=== PATIENT | male | born 1965 | race Caucasian/White ===

== ENCOUNTER → 2020-10-20 10:48 | Outpatient (BNVA) | payer OTHER, SELFPAY | PROVIDERS: PCP Internal Medicine; Visit Provider Urology ==

== ENCOUNTER 2023-02-04 16:17 | Outpatient (REF) | payer OTHER, SELFPAY ==
[2023-02-05 02:16] LABS: PSA,Total (Free>4and<10) 0.85 ng/mL (0.00-4.00)
== END 2023-02-04 16:18 | disposition home or self-care (01) ==
LOC: HO.LAB 16:17
PROVIDERS: Visit Provider Urology
DX: Z12.5 Encounter for screening for malignant neoplasm of prostate (principal); N48.6 Induration penis plastica
CPT/HCPCS: 36415; 84153

== ENCOUNTER 2023-02-13 11:34 | Outpatient (AMB) | payer OTHER, SELFPAY ==
--- NOTE | 2023-02-13 11:35 | MHC.OFFVIS ---
Intake Intake Visit Reasons: 1Y PSA(set) Intake Note: Patient is present for Telephone PSA Urology Med: Sildenafil Antibiotic Allergy: None Blood Thinner: None Pharmacy: [facility] Allergies cats Allergy (Unknown, Uncoded 02/13/23 11:35) Unknown Medication List - Last Reconciled 02/13/23 by Paul Mathis MD allopurinol 300 mg PO DAILY hydrochlorothiazide 25 mg PO DAILY prednisone 1 mg PO DAILY sildenafil 50 mg PO DAILY PRN 30 days HPI HPI Comments History of Present Illness Details Anibal Pérez is a very pleasant male. He is a patient of Dr Hernandez. They are seen in the office today for the following urologic conditions. - Peyronie's disease - erectile dysfunction Telephone evaluation 15 minutes consultation [employer] juliann Video attempted Peyronie's stable Sildenafil refilled PSA low Follow-up 12 month Erectile dysfunction: Continue with Viagra as needed He presents today for for continued evaluation and management of erectile dysfunction. Symptoms have been present for/since years ago. Anibal describes having a penile fracture. Since this point in time he's had marked issues with erections. He does use Viagra. - trying over the counter product- low dose viagra. Current treatment includes Viagra/sildenafil. - PSA 09/12 1.5, 02/13 0.9 Prior therapies include oral medications. Nocturnal erections do not occur. Currently they are in a stable relationship. Associated problems hypertension Yes Medications include(s) Cialis . Overall he is satisfied with the current management. Therapeutic plan includes maintaining current therapy - oral low dose medications. Current symptoms include trouble sustaining an erection, trouble getting an erection PFSH Medical History Epididymitis Erectile dysfunction Gout Peyronie's disease Surgical History History of surgery Family History Father Lung cancer Smoker Mother Cardiac disease Review of Systems Const All systems reviewed & are unremarkable except as noted in HPI and below Reports no additional complaints Resp Reports no additional complaints GI Reports no additional complaints Reports as per HPI Musc Reports no additional complaints Physical Exam Telemedicine evaluation Appropriate responses Regular breathing rate and rhythm HEENT Head: Yes normal to inspection Ears: hearing grossly normal bilaterally Eyes General: appearance normal, both eyes and all related structures Neck Neck: Yes normal visual inspection Chest Chest palpation & inspection: normal inspection of the chest Resp Effort & Inspection: normal respiratory effort and able to speak in complete sentences Assessment & Plan Assessment & Plan (1) Peyronie's disease: Code(s): N48.6 - Induration penis plastica (2) Erectile dysfunction: Code(s): N52.9 - Male erectile dysfunction, unspecified Plan 12 month follow-up Patient Instructions: Imaging studies, laboratory and physical exam results were discussed and reviewed in detail. No major barriers to patient understanding were identified. An opportunity to ask questions regarding the treatment plan was provided. All questions were answered. The patient expressed understanding and agreement with the above treatment plan. The patient is aware they should contact our office by phone for worsening of their current condition or the appearance of new urologic symptoms. Compliance is encouraged with any medications and followup testing that is ordered. It is a privilege to participate in the urologic care of your patient. If you have any questions or concerns regarding treatment for the above conditions, or other urologic issues, please do not hesitate to contact me. The office telephone contact is [phone]. This note is constructed using voice recognition software. While every effort has been made to ensure accuracy packaging line operator errors may have been included. Yours sincerely, Dr Paul Mathis MD, [facility] - Urology Providers of Expert, Compassionate Care for the Genitourinary System Telehealth Telehealth Location of provider rendering services: practice address Location of patient: address on file Patient Identification confirmed using: Name, : Yes Telehealth method: video Patient verbally consented to treatment: Yes Patient verbally consented to billing insurance company: Yes Patient informed of any privacy concerns related to visit: Yes Coding Level of Care Code Tele Est Pt Level 4 (33058) Diagnoses Peyronie's disease N48.6 Erectile dysfunction N52.9
== END 2023-02-13 16:57 | disposition home or self-care (01) ==
LOC: HO.HUSH 11:34
PROVIDERS: PCP Internal Medicine; Visit Provider Urology
DX: N48.6 Induration penis plastica (principal); N52.9 Male erectile dysfunction, unspecified
CPT/HCPCS: 99213

== ENCOUNTER → 2023-02-13 11:34 | Outpatient (BNVA) | payer OTHER, SELFPAY | PROVIDERS: PCP Internal Medicine; Visit Provider Urology ==

== ENCOUNTER 2024-02-14 14:49 | Outpatient (AMB) | payer OTHER, SELFPAY ==
--- NOTE | 2024-02-14 14:53 | A.OFFVIS_ITS ---
Intake Visit Reasons: 1Y Follow Up-Erectile Dys Intake Note: Patient is present for 1y f/u erectile dys Urology Med: Sildenafil Antibiotic Allergy: None Blood Thinner: None Sol[employer] Bar[employer]s Required: No Allergies cats Allergy (Unknown, Uncoded 02/14/24 14:53) Unknown Medication List - Last Reconciled 02/14/24 by Paul Mathis MD allopurinol 300 mg PO DAILY hydrochlorothiazide 25 mg PO DAILY prednisone 1 mg PO DAILY sildenafil 100 mg PO ONCE PRN 30 days HPI Comments Details: Anibal Pérez is a very pleasant male. He is a patient of Dr Hernandez. They are seen in the office today for the following urologic conditions. - Peyronie's disease - erectile dysfunction Yearly follow-up Peyronie's stable Sildenafil refilled Twelve month follow-up PSA office Increase Viagra to 100 mg p.o. as needed Erectile dysfunction: Continue with Viagra as needed He presents today for for continued evaluation and management of erectile dysfunction. Symptoms have been present for/since years ago. Anibal describes having a penile fracture. Since this point in time he's had marked issues with erections. He does use Viagra. - trying over the counter product- low dose viagra. Current treatment includes Viagra/sildenafil. - PSA 09/12 1.5, 02/13 0.9 Prior therapies include oral medications. Nocturnal erections do not occur. Currently they are in a stable relationship. Associated problems hypertension Yes Medications include(s) Cialis . Overall he is satisfied with the current management. Therapeutic plan includes maintaining current therapy - oral low dose medications. Current symptoms include trouble sustaining an erection, trouble getting an erection [facility] Medical History Epididymitis Erectile dysfunction Gout Peyronie's disease Surgical History History of surgery Family History Father Lung cancer Smoker Mother Cardiac disease Results AMB Urinalysis, Automated UA Leukoctes 0 Zakiya/uL Last Edit by CARLOS Gonzalez on 02/14/24 15:06 UA Nitrite Negative Last Edit by CARLOS Gonzalez on 02/14/24 15:06 UA Urobilinogen 0.2 mg/dL Last Edit by Monica Siddiqui [facility] on 02/14/24 15:0 6 UA Protein 0 mg/dL Last Edit by Monica Siddiqui [facility] on 02/14/24 15:06 UA pH 6.5 Last Edit by Monica Siddiqui [facility] on 02/14/24 15:06 UA Blood 0 Malcom/uL Last Edit by Monica Siddiqui [facility] on 02/14/24 15:06 UA Specific [place] 1.010 Last Edit by Monica Siddiqui [facility] on 02/14/24 15: 06 UA Ketone Negative Last Edit by Monica Siddiqui [facility] on 02/14/24 15:06 UA Bilirubin 0 mg/dL Last Edit by Monica Siddiqui [facility] on 02/14/24 15:06 UA Glucose 0 mg/dL Last Edit by Monica Siddiqui [facility] on 02/14/24 15:06 Assessment & Plan Assessment & Plan (1) Peyronie's disease: Code(s): N48.6 - Induration penis plastica Category: Medical (2) Erectile dysfunction: Code(s): N52.9 - Male erectile dysfunction, unspecified Category: Medical Plan Twelve month follow-up PSA Orders: Orders AMB Urinalysis Automated Today Z13.9 - Encounter for screening, unspecified Prostate Specific Antigen 364 Days N48.6 - Induration penis plastica, N52.9 - Male erectile dysfunction, unspecified Medications: Changed From sildenafil administer 60 minutes before intended activity 50 mg PO DAILY 30 days PRN 30 tabs 5RF sexual activity N52.9 - Male erectile dysfunction, unspecified To sildenafil administer 60 minutes before intended activity 100 mg PO ONCE 30 days PRN 30 tabs 5RF sexual activity N52.9 - Male erectile dysfunction, unspecified Patient Instructions: Imaging studies, laboratory and physical exam results were discussed and reviewed in detail. No major barriers to patient understanding were identified. An opportunity to ask questions regarding the treatment plan was provided. All questions were answered. The patient expressed understanding and agreement with the above treatment plan. The patient is aware they should contact our office by phone for worsening of their current condition or the appearance of new urologic symptoms. Compliance is encouraged with any medications and followup testing that is ordered. It is a privilege to participate in the urologic care of your patient. If you have any questions or concerns regarding treatment for the above conditions, or other urologic issues, please do not hesitate to contact me. The office telephone contact is [phone]. This note is constructed using voice recognition software. While every effort has been made to ensure accuracy laboratory aide errors may have been included. Yours sincerely, Dr Paul Mathis MD, [facility] - Urology Providers of Expert, Compassionate Care for the Genitourinary System Coding Level of Care Code Est Pt Level 4 (95930) Diagnoses Peyronie's disease N48.6 Erectile dysfunction N52.9
== END 2024-02-14 15:15 | disposition home or self-care (01) ==
PROVIDERS: PCP Internal Medicine; Visit Provider Urology
DX: N48.6 Induration penis plastica (principal); N52.9 Male erectile dysfunction, unspecified; Z13.9 Encounter for screening, unspecified
CPT/HCPCS: 99214

== ENCOUNTER → 2024-02-14 14:49 | Outpatient (BNVA) | payer OTHER, SELFPAY | PROVIDERS: PCP Internal Medicine; Visit Provider Urology | DX: N52.9 Male erectile dysfunction, unspecified (principal); N48.6 Induration penis plastica; Z79.899 Other long term (current) drug therapy | CPT/HCPCS: 81003 ==

== ENCOUNTER 2025-02-06 07:11 | Outpatient (REF) | payer OTHER, SELFPAY ==
[2025-02-06 08:39] LABS: PSA,Total (Free>4and<10) 1.06 ng/mL (0.00-4.00)
== END 2025-02-06 07:12 | disposition home or self-care (01) ==
LOC: HO.LAB 07:11
PROVIDERS: PCP Internal Medicine; Visit Provider Urology
DX: N48.6 Induration penis plastica (principal); N52.9 Male erectile dysfunction, unspecified
CPT/HCPCS: 36415; 84153

== ENCOUNTER 2025-02-09 15:36 | Outpatient (AMB) | payer OTHER, SELFPAY ==
--- NOTE | 2025-02-09 15:42 | MHC.OFFVIS ---
Intake Visit Reasons: 1y/PSA Intake Note: Patient is present for 1y f/u erectile dys Urology Med: Sildenafil,Allopurinol Antibiotic Allergy: None Blood Thinner: None Housekeeper/Custodian/Laundry Worker Required: No Accompanied by: Self / Same As Patient Allergies cats Allergy (Unknown, Uncoded 02/14/24 14:53) Unknown HPI Comments Details: Anibal Pérez is a very pleasant male. He is a patient of Dr Hernandez. They are seen in the office today for the following urologic conditions. - Peyronie's disease - erectile dysfunction Yearly follow-up Peyronie's stable Sildenafil refilled Twelve month follow-up PSA office Increase Viagra to 100 mg p.o. as needed Erectile dysfunction: Continue with Viagra as needed He presents today for for continued evaluation and management of erectile dysfunction. Symptoms have been present for/since years ago. Anibal describes having a penile fracture. Since this point in time he's had marked issues with erections. He does use Viagra. - trying over the counter product- low dose viagra. Current treatment includes Viagra/sildenafil. - PSA 09/12 1.5, 02/13 0.9 Prior therapies include oral medications. Nocturnal erections do not occur. Currently they are in a stable relationship. Associated problems hypertension Yes Medications include(s) Cialis . Overall he is satisfied with the current management. Therapeutic plan includes maintaining current therapy - oral low dose medications. Current symptoms include trouble sustaining an erection, trouble getting an erection PFSH Medical History Epididymitis Erectile dysfunction Gout Peyronie's disease Surgical History History of surgery Family History Father Lung cancer Smoker Mother Cardiac disease Review of Systems Const Denies chills and Denies fever(s) Card Reports no additional complaints and Denies syncope Resp Denies cough GI Denies abdominal pain and Denies heartburn Reports as per HPI and Denies change in libido Neuro Denies syncope Psych Denies change in libido Endo Denies change in libido Physical Exam Const General: cooperative, healthy appearing, comfortable and no acute distress Orientation/consciousness: patient oriented x3 HEENT Face and sinus: Yes normal facial exam Mouth: moist mucous membranes Neck Neck: Yes normal visual inspection, Yes full ROM and Yes trachea midline Chest Chest palpation & inspection: normal inspection of the chest Resp Effort & Inspection: normal respiratory effort, able to speak in complete sentences and no respiratory distress GI Inspection: Yes normal to inspection Back/Spine/Pelvis Cervical Spine: normal cervical lordosis Thoracic/Lumbar Spine: thoracic and lumbar spine normal to inspection Skin General skin exam: no rashes or lesions noted Neuro General: patient oriented x3, gait normal, tone normal and moves all extremities Extrem General: Yes normal to inspection and Yes capillary refill normal Assessment & Plan Assessment & Plan (1) Peyronie's disease: Code(s): N48.6 - Induration penis plastica Category: Medical (2) Erectile dysfunction: Code(s): N52.9 - Male erectile dysfunction, unspecified Category: Medical Plan Twelve month follow-up Patient Instructions: This note is constructed using voice recognition software. While every effort has been made to ensure accuracy loan interviewer mortgage errors may have been included. Imaging studies, laboratory and physical exam results were discussed and reviewed in detail. No major barriers to patient understanding were identified. An opportunity to ask questions regarding the treatment plan was provided. All questions were answered. The patient expressed understanding and agreement with the above treatment plan. The patient is aware they should contact our office by phone for worsening of their current condition or the appearance of new urologic symptoms. Compliance is encouraged with any medications and followup testing that is ordered. It is a privilege to participate in the urologic care of your patient. If you have any questions or concerns regarding treatment for the above conditions, or other urologic issues, please do not hesitate to contact me. The office telephone contact is [phone]. Sincerely, Dr Paul aMthis MD, [facility] - Urology Compassionate Specialist Care for the Genitourinary System Coding Level of Care Code Est Pt Level 4 (15434) Diagnoses Peyronie's disease N48.6 Erectile dysfunction N52.9
== END 2025-02-09 16:03 | disposition home or self-care (01) ==
LOC: HO.HUSH 15:37
PROVIDERS: PCP Internal Medicine; Visit Provider Urology
DX: N48.6 Induration penis plastica (principal); N52.9 Male erectile dysfunction, unspecified
CPT/HCPCS: 99214